=== PATIENT | male | born 1955 | race African-American/Black ===

== ENCOUNTER 2020-08-25 08:21 | Emergency (ER) | payer OTHER ==
[~2020-08-25] VITALS: Ht 175.3 cm; Wt 104.3 kg
[2020-08-25 08:36] VITALS: BP 137/88
[2020-08-25 09:14] LABS: Basophils # (auto) 0 10 ^3/uL (0-0.2); Basophils % (auto) 0.4 % (0.0-2.0); Eosinophils # (auto) 0.3 10 ^3/uL (0-0.8); Eosinophils % (auto) 3.3 % (0.0-7.0); Hematocrit 41.9 % (41.0-53.0); Hemoglobin 14.5 g/dL (13.5-17.5); Lymphocytes # (auto) 2.1 10 ^3/uL (0.4-5.4); Lymphocytes % (auto) 23.1 % (10.0-50.0); Mean Corpuscular Hemoglobin 32.8 pg (28.0-32.0); Mean Corpuscular Hgb Conc. 34.7 g/dL (32.0-36.0); Mean Corpuscular Volume 94.5 fL (80.0-100.0); Monocytes # (auto) 0.9 10 ^3/uL (0-1.3); Monocytes % (auto) 9.6 % (0.0-12.0); Neutrophils # (auto) 5.7 10 ^3/uL (1.6-8.6); Neutrophils % (auto) 63.6 % (37.0-80.0); Platelet Count (auto) 161 10^3/uL (140-450); Red Blood Cells 4.43 10^6/uL (4.5-5.90); Red Cell Distribution Width 14.9 % (11.8-14.3); White Blood Cell 8.9 10^3/uL (4.4-10.8)
[2020-08-25 09:30] LABS: Albumin 3.4 g/dL (3.4-5.0); BUN/Creatinine Ratio 14.1; Calcium 8.6 mg/dL (8.5-10.1)
[2020-08-25] MEDS ORDERED: IPRATROPIUM BROM 0.5 MG/2.5ML INH SOL NEB ONE (09:30)
[2020-08-25] MEDS ORDERED: methylPREDNISolone SOD SUCC 125 MG/2 ML VL IV ONE (09:30)
[2020-08-25] MEDS ORDERED: ALBUTEROL SULF 2.5 MG/0.5ML(0.5%) NEB SOLN NEB ONE (09:30)
[2020-08-25 09:32] LABS: Bilirubin, Total 0.4 mg/dL (0.2-1.0); Total Protein 6.6 g/dL (6.4-8.2)
== END 2020-08-25 11:42 | disposition home or self-care (01) ==
LOC: EDBD 08:21 → ER 08:21
DX: J44.1 Chronic obstructive pulmonary disease with (acute) exacerbation (principal)
CPT/HCPCS: 36415; 71045; 80053; 85025; 85049; 93005; 94640; 96374; 99285; J2930; J7644